=== PATIENT | female | born 1965 | race American Indian/Alaskan Native ===

== ENCOUNTER 2016-12-21 13:44 | Outpatient (CLI) | payer OTHER ==
--- NOTE | 2016-12-21 15:41 | Mammography Report ---
RIGHT DIGITAL DIAGNOSTIC MAMMOGRAM with CAD: 12/21/16 13:44:00 CLINICAL: Followup abnormal screening mammogram COMPARISON:04/11/16 mammogram FINDINGS: The breast is heterogeneously dense, which may obscure small masses. No asymmetry is described on the prior exam.No mass, architectural distortion or suspicious calcifications. IMPRESSION: No mammographic evidence of malignancy. BI-RADS CATEGORY: 2 - - Benign RECOMMENDATION: Return to routine mammographic screening. ACR BI-RADS MAMMOGRAPHIC CODES: 0 = Needs additional imaging evaluation; 1 = Negative; 2 = Benign; 3 = Probably benign; 4 = Suspicious; 5 = Malignant; 6 = Known biopsy-proven malignancy COMMENT: 1. Dense breast tissue, i.e., adenosis, fibrocystic changes, etc., may obscure an underlying neoplasm. 2. Approximately 10% of cancers are not detected with mammography. 3. A negative mammography report should not delay biopsy if a clinically suspicious mass is present. COMMENT: Patient follow-up letters are generated by our [employer] application.
== END 2016-12-21 13:45 | disposition home or self-care (01) ==
LOC: SPVWC 13:44
PROVIDERS: ATTEND Family Medicine
DX: R92.8 Other abnormal and inconclusive findings on diagnostic imaging of breast (principal)
CPT/HCPCS: G0206-RT

== ENCOUNTER 2017-09-19 15:11 | Outpatient (CLI) | payer OTHER ==
--- NOTE | 2017-09-19 08:16 | Mammography Report ---
BILATERAL DIGITAL SCREENING MAMMOGRAM with CAD : 09/18/17 10:20:00 CLINICAL: Routine screening. COMPARISON:12/21/16 FINDINGS: The breasts are heterogeneously dense, which may obscure small masses. No mass, architectural distortion or suspicious calcifications. IMPRESSION: No mammographic evidence of malignancy. BI-RADS CATEGORY: 2 -- Benign RECOMMENDATION: Routine mammographic screening in one year. COMMENT: Patient follow-up letters are generated by our [employer] application.
--- NOTE | 2017-09-20 10:01 | Ultrasound Report ---
Pelvic ultrasound: Pelvic pain. Endovaginal and transabdominal imaging demonstrates an anteverted uterus measuring 3.1 x 4.9 x 7.0 cm. The myometrium is homogeneous. The endometrium is unremarkable with a width of 3 mm. A couple of very small nabothian cysts are present in the cervix. The left ovary measures 2.1 cm and contains a 1 cm cyst. On the right side there is a dilated tubular structure having a width of 4.4 mm. The ovary is well identified measuring 17 mm and is echogenically unremarkable. No free fluid identified. Impression: The findings are suspicious for right hydrosalpinx.
== END 2017-09-19 15:12 ==
LOC: SPVWC 15:11
PROVIDERS: ATTEND Obstetrics & Gynecology
DX: Z12.31 Encounter for screening mammogram for malignant neoplasm of breast (principal); R10.2 Pelvic and perineal pain
CPT/HCPCS: 76830; 76856; 77067